=== PATIENT | female | born 1995 | race Caucasian/White ===

== ENCOUNTER 2017-01-05 05:39 | Inpatient (IN) | payer OTHER ==
[2017-01-05] VITALS (18 sets, daily range): BP systolic 129–158; BP diastolic 86–94; PULSE 86–126; RESP 1–20; TEMP 98–99
[~2017-01-05] VITALS: Ht 165.1 cm; Wt 113.4 kg
--- NOTE | 2017-01-05 07:33 | PD ---
HPI Chief Complaint Contractions Date Seen: Jan 05, 2017 Time Seen: 07:29 Travel History International Travel<30 Days: No Contact w/Intl Traveler<30Days: No Known Affected Area: No History of Present Illness HPI This is a 21-year-old patient who is at 40 weeks today complains of contractions since about 1:00 in the morning. Show is noted and when she got here at 6:30 that morning she was 2-3/90 and -1. Patient is GBS neg Para: 0 : 1 History Past Medical History Medical History: Denies Significant Hx Past Surgical History Surgical History: No Previous Surgery Family History Family History: Negative Social History Alcohol Use: No Tobacco Use: No Substance Abuse: No Review of Systems Except as stated in HPI: all other systems reviewed are Neg Physical Exam Narrative GENERAL: Well-nourished, well-developed patient. SKIN: Warm and dry. HEAD: Normocephalic and atraumatic. EYES: No scleral icterus. No injection or drainage. ENT: No nasal drainage noted. Mucous membranes pink. Airway patent. NECK: Supple, trachea midline. No JVD. CARDIOVASCULAR: Regular rate and rhythm without murmurs, gallops, or rubs. RESPIRATORY: Breath sounds equal bilaterally. No accessory muscle use. BREASTS: Bilateral exam showed no masses , no retractions, no nipple discharge. ABDOMEN/GI: Abdomen soft, non-tender, bowel sounds present, no rebound, no guarding Gravid to [-] weeks size Fundal Height: [38-] GENITOURINARY: External Genitalia: intact and normal in appearance BUS glands: [-Normal] Cervix: [Posterior-] Dilatation: [Four-] Effacement: [100%-] Station: [-2-] Presentation: [Vertex-] Membranes: Intact Uterine Contractions: [-Every 5-10 minutes] FHT's: Category: [-1] Baseline: 140 Reactive: Reactive Variability: Moderate Decels: Absent EXTREMITIES: No cyanosis or edema. BACK: Nontender without obvious deformity. No CVA tenderness. NEUROLOGICAL: Awake and alert. Motor and sensory grossly within normal limits. Five out of 5 muscle strength in all muscle groups. Normal speech. Data Data Vital Signs Reviewed: Yes MDM Plan Patient in early active labor Dr. Campbell called who is covering for this patient's physician Admission Diagnosis Diagnosis: Primary Impression: Irregular uterine contractions Additional Impression: 40 weeks gestation of Margo Carlton MD Jan 05, 2017 07:33
[2017-01-05] MEDS ORDERED: LACTATED RINGER'S 1000 ML INJ 1,000 ML IV PRN (07:34)
[2017-01-05] MEDS ORDERED: LACTATED RINGER'S 1000 ML INJ 1,000 ML IV SCH (07:34)
[2017-01-05] MEDS ORDERED: ONDANSETRON HCL 4 MG/2 ML VIAL IV PRN (07:45)
[2017-01-05] MEDS ORDERED: SODIUM CHLORID 0.9% 500 ML INJ 500 ML IV PRN (07:45)
[2017-01-05] MEDS ORDERED: CITRIC ACID-SODIUM CITRATE LIQ 30 ML UDC PO SCH (07:45)
[2017-01-05] MEDS ORDERED: MINERAL OIL 10 ML VIAL TOPICAL PRN (07:45)
[2017-01-05] MEDS ORDERED: OXYTOCIN 30 UNITS-500ML PREMIX 500 ML IV ONE (07:45)
[2017-01-05] MEDS ORDERED: LIDOCAINE HCL 1% 50 ML VIAL I-DERMAL PRN (07:45)
[2017-01-05] MEDS ORDERED: LIDOCAINE HCL 1% 50 ML VIAL INFIL PRN (07:45)
[2017-01-05] MEDS ORDERED: SODIUM CHLOR 0.9% 1000 ML INJ 1,000 ML IV PRN (07:54)
[2017-01-05] MEDS ORDERED: OXYTOCIN 30 UNITS-500ML PREMIX 500 ML ONE (08:22)
[2017-01-05 09:07] LABS: AUTOMATED NEUTROPHIL # 14.6 TH/MM3 (1.8-7.7); BASOPHIL % 0.2 % (0.0-2.0); EOSINOPHIL # 0.1 TH/MM3 (0-0.4); EOSINOPHIL % 0.7 % (0.0-4.0); HEMATOCRIT 35.9 % (35.0-46.0); HEMO FLAGS DIFF FINAL; LYMPH % 8.8 % (9.0-44.0); LYMPHOCYTE # 1.5 TH/MM3 (1.0-4.8); MEAN CELL VOLUME 89.2 FL (80.0-100.0); MEAN CORPUSCULAR HEMOGLOBIN 30.5 PG (27.0-34.0); MEAN CORPUSCULAR HGB CONC 34.2 % (32.0-36.0); MONO % 3.6 % (0.0-8.0); NEUT % 86.7 % (16.0-70.0); PLATELET COUNT 274 TH/MM3 (150-450); RED BLOOD COUNT 4.03 MIL/MM3 (4.00-5.30); RED CELL DISTRIBUTION WIDTH 13.8 % (11.6-17.2); WHITE BLOOD COUNT 16.9 TH/MM3 (4.0-11.0)
[2017-01-05 09:10] LABS: BACTERIA, URINE RARE /hpf; BLOOD, URINE SMALL (NEG); COMMENT (UR) CULT NOT INDICATED; CULTURE IF INDICATED CULT NOT INDICATED; GLUCOSE,URINE NEG (NEG); KETONE, URINE NEG (NEG); MUCUS URINE FEW /lpf (OCC); NITRITE,URINE NEG (NEG); PH, URINE 6.5 (5.0-8.5); SQUAMOUS EPITHELIAL CELL URINE 3 /hpf (0-5); URINE COLOR YELLOW (YELLW/STRAW)
[2017-01-05] MEDS ORDERED: CALNTAB (10:06)
--- NOTE | 2017-01-05 17:53 | HHI.HP ---
History & Physical H&P Patient Name: Steff Beltre Unit Number: [id number] Date of : 1995 Patient Status: Admitted Inpatient Attending Doctor: Jc Campbell MD [facility] HPI Chief Complaint Contractions Date Seen: Jan 05, 2017 Time Seen: 07:29 Travel History International Travel<30 Days: No Contact w/Intl Traveler<30Days: No Known Affected Area: No History of Present Illness HPI This is a 21-year-old patient who is at 40 weeks today complains of contractions since about 1:00 in the morning. Show is noted and when she got here at 6:30 that morning she was 2-3/90 and -1. Patient is GBS neg Para: 0 : 1 History (Limited) History Past Medical History Medical History: Denies Significant Hx Past Surgical History Surgical History: No Previous Surgery Family History Family History: Negative Social History Alcohol Use: No Tobacco Use: No Substance Abuse: No Allergies-Medications Allergies-Medications ROS Review of Systems Except as stated in HPI: all other systems reviewed are Neg Physical Exam Physical Exam Narrative GENERAL: Well-nourished, well-developed patient. SKIN: Warm and dry. HEAD: Normocephalic and atraumatic. EYES: No scleral icterus. No injection or drainage. ENT: No nasal drainage noted. Mucous membranes pink. Airway patent. NECK: Supple, trachea midline. No JVD. CARDIOVASCULAR: Regular rate and rhythm without murmurs, gallops, or rubs. RESPIRATORY: Breath sounds equal bilaterally. No accessory muscle use. BREASTS: Bilateral exam showed no masses , no retractions, no nipple discharge. ABDOMEN/GI: Abdomen soft, non-tender, bowel sounds present, no rebound, no guarding Gravid to [-] weeks size Fundal Height: [38-] GENITOURINARY: External Genitalia: intact and normal in appearance BUS glands: [-Normal] Cervix: [Posterior-] Dilatation: [Four-] Effacement: [100%-] Station: [-2-] Presentation: [Vertex-] Membranes: Intact Uterine Contractions: [-Every 5-10 minutes] FHT's: Category: [-1] Baseline: 140 Reactive: Reactive Variability: Moderate Decels: Absent EXTREMITIES: No cyanosis or edema. BACK: Nontender without obvious deformity. No CVA tenderness. NEUROLOGICAL: Awake and alert. Motor and sensory grossly within normal limits. Five out of 5 muscle strength in all muscle groups. Normal speech. Data Data Data Vital Signs Reviewed: Yes MDM MDM Plan Patient in early active labor Dr. Campbell called who is covering for this patient's physician Admission Diagnosis Diagnosis: Primary Impression: Irregular uterine contractions Additional Impression: 40 weeks gestation of Hamlet Cortes MD Jan 05, 2017 17:53
--- NOTE | 2017-01-05 17:57 | PD.LABORPN ---
Subjective Subjective Patient denies rupture membranes. Contractions are consistent and she is tolerating them well. Objective Vital Signs Vital Signs Date Time Temp Pulse Resp B/P Pulse Ox O2 Delivery O2 Flow Rate FiO2 01/05/17 17:32 109 18 129/94 01/05/17 16:41 98.0 01/05/17 15:06 1 01/05/17 15:05 100 158/93 01/05/17 11:33 86 18 140/94 Objective Pelvic Exam: Cervix: [-] Dilatation: [7-8-] Effacement: [100-] Station: [-] Presentation: [-v] Membranes: [intact] Uterine Contractions: [q3-] FHT's: Category: [-1] Baseline: [-] Reactive: [-] Variability: [-] Decels: [-] Assessment/Plan Assessment and Plan Assessment: Progressing in active labor, category 1 heart rate Plan: The patient had requested a change of medical provider and I have accepted care of this patient. Expect vaginal delivery. Continue expectant management. Hamlet Cortes MD Jan 05, 2017 17:57
--- NOTE | 2017-01-05 21:16 | PD.LABORPN ---
Subjective Subjective Patient notes continued contractions Objective Vital Signs Vital Signs Date Time Temp Pulse Resp B/P Pulse Ox O2 Delivery O2 Flow Rate FiO2 01/05/17 20:54 99.0 18 01/05/17 17:32 109 18 129/94 01/05/17 16:41 98.0 01/05/17 15:06 1 01/05/17 15:05 100 158/93 Objective Pelvic Exam: Cervix: [-] Dilatation: [-7-8] Effacement: [100-] Station: [0-] Presentation: [-vtx] Membranes: [ruptured] Uterine Contractions: [q2-3-] FHT's: Category: [-1] Baseline: [-] Reactive: [-] Variability: [-] Decels: [-] Assessment/Plan Assessment and Plan Assessment: Protracted active phase Plan: Patient agrees to amniotomy but is not in favor Pitocin or intrauterine pressure catheter at this time. Hamlet Cortes MD Jan 05, 2017 21:16
[2017-01-06] VITALS (10 sets, daily range): BP systolic 114–142; BP diastolic 69–98; PULSE 42–126; RESP 18–20; TEMP 98.1–98.9
--- NOTE | 2017-01-06 00:25 | PD.OB.DELI ---
Delivery Date: Jan 06, 2017 Anesthesia: None Episiotomy: None Vaginal Delivery: Normal (the vertex was expelled by maternal effort. There was no delay 4 the shoulders which were also delivered by maternal effort. The was passed to the maternal abdomen. Delayed cord clamping was accomplished. Cord blood sample was obtained. Hemostasis was excellent following spontaneous expulsion of the placenta with the addition of IV Pitocin and massage. Estimated blood loss 200 cc) Presentation: Occiput anterior Nuchal Cord: None Delayed cord clamping (45 sec): Yes : Male One Minute : 9 Five Minute : 9 Weight: 3260 Infant Care: Spontaneous crying Placenta: Spontaneous delivery, Intact, 3 vessel cord Laceration: Vaginal laceration, 2 deg Repair: Vicryl Hamlet Bueno MD Jan 06, 2017 00:24
[2017-01-06] MEDS ORDERED: SODIUM CHLORIDE 0.9% FLUSH 5 ML FLUSH IV PRN (01:15)
[2017-01-06] MEDS ORDERED: WITCH HAZEL 50%/GLYCERIN 12.5% 40 PAD JAR TOPICAL PRN (01:15)
[2017-01-06] MEDS ORDERED: ONDANSETRON ODT 4 MG TAB PO PRN (01:15)
[2017-01-06] MEDS ORDERED: oxyCODONE/ACETAMINOPHEN 5 MG/325 MG TAB PO PRN ×2 (01:15)
[2017-01-06] MEDS ORDERED: BENZOCAINE 20% TOPICAL SPRAY 60 ML CAN TOPICAL PRN (01:15)
[2017-01-06] MEDS ORDERED: DOCUSATE SODIUM 50 MG/SENNA 8.6 MG TAB PO PRN (01:15)
[2017-01-06] MEDS ORDERED: ALUMINUM/MAGNESIUM/SIMETH 30 ML CUP PO PRN (01:15)
[2017-01-06] MEDS ORDERED: ACETAMINOPHEN 325 MG TAB PO PRN (01:15)
[2017-01-06] MEDS ORDERED: ZOLPIDEM TARTRATE 5 MG TAB PO PRN (01:15)
[2017-01-06] MEDS: IBUPROFEN 600 MG TAB PO PRN ×3 (01:31→19:55)
[2017-01-06] MEDS ORDERED: SODIUM CHLORIDE 0.9% FLUSH 5 ML FLUSH IV SCH (09:00)
--- NOTE | 2017-01-06 10:28 | HHI.OB ---
Subjective Post Day: 1 Remarks Ms. Beltre is a 21 yo who is PPD 1 from vaginal delivery. Patient reports controlled abdominal pain at this time with Motrin; patient reports her pain as 2/10. Patient reports minimal vaginal bleeding. Patient is ambulating well. No dysuria. Patient states she has not yet passed gas or bowel movement. Patient reports some shortness of breath when walking. No calf tenderness. Patient breast-feeding well. (Stef Deshpande MD R2) Remarks Patient seen and evaluated with resident under direct supervision, agree with assessment and plan. (Hamlet Cortes MD) Objective Vitals/I&O Vital Signs Date Time Temp Pulse Resp B/P Pulse Ox O2 Delivery O2 Flow Rate FiO2 01/06/17 08:15 98.1 78 20 01/06/17 08:14 120/89 01/06/17 02:00 98.9 112 18 131/69 01/06/17 01:45 18 01/06/17 01:33 131/75 01/06/17 01:33 114 01/06/17 01:01 114 114/98 01/06/17 00:56 121 01/06/17 00:56 131/77 01/06/17 00:35 42 126/86 01/06/17 00:17 126 130/81 01/06/17 00:01 142/82 01/06/17 00:01 113 01/05/17 23:52 20 01/05/17 23:51 126 151/88 01/05/17 22:36 98.9 107 01/05/17 22:35 157/88 01/05/17 22:25 20 01/05/17 21:56 20 01/05/17 21:30 20 01/05/17 21:00 120 151/86 01/05/17 20:54 99.0 18 01/05/17 17:32 109 18 129/94 01/05/17 16:41 98.0 01/05/17 15:06 1 01/05/17 15:05 100 158/93 01/05/17 11:33 86 18 140/94 Objective Remarks GENERAL: Well-nourished, well-developed patient. CARDIOVASCULAR: Tachycardic (~110 bpm), regular rhythm without murmurs RESPIRATORY: Breath sounds equal bilaterally. No accessory muscle use. ABDOMEN/GI: Abdomen soft, non-tender. Fundus: Firm, non-tender at umbilicus. GENITOURINARY: Light to moderate bleeding. EXTREMITIES: No cyanosis or edema, non-tender, without signs of DVT. Medications and IVs Current Medications Medications (Trade) Dose Ordered Sig/Dayday Route Start Time Stop Time Status Last Admin (NS Flush) 2 ml BID IV 01/06/17 09:00 (NS Flush) 2 ml UNSCH PRN IV 01/06/17 01:15 (Tylenol) 650 mg Q4H PRN PO 01/06/17 01:15 (Motrin) 600 mg Q6H PRN PO 01/06/17 01:15 01/06/17 01:31 (Percocet 5-325 Mg) 1 tab Q4H PRN PO 01/06/17 01:15 01/06/17 06:45 (Percocet 5-325 Mg) 2 tab Q4H PRN PO 01/06/17 01:15 (Americaine 20% Top Spr) 1 spray Q4H PRN TOPICAL 01/06/17 01:15 01/06/17 02:28 (Tucks Pads) 1 applic QID PRN TOPICAL 01/06/17 01:15 01/06/17 02:28 (Merle-Colace) 2 tab Q12H PRN PO 01/06/17 01:15 (Ambien) 5 mg HS PRN PO 01/06/17 01:15 (M-M-R Ii Inj) 0.5 ml ONCE ONCE SQ 01/06/17 16:00 01/06/17 16:01 (Boostrix Inj) 0.5 ml ONCE ONCE IM 01/06/17 16:00 01/06/17 16:01 (Mag-Al Plus Susp Liq) 15 ml Q8H PRN PO 01/06/17 01:15 (Zofran Odt) 4 mg Q6H PRN PO 01/06/17 01:15 (Stef Deshpande MD R2) Assessment/Plan Problem List: (1) care and examination Assessment and Plan 21 yo female s/p vaginal delivery PPD1. - AF, mild tachycardia (~110bpm) but otherwise reassuring exam, will monitor - Continue routine care - Motrin and Percocet PRN pain - Encourage OOB - Pelvic rest x 6 wks - Contraception - Anticipate D/C tomorrow (Stef Deshpande MD R2) Stef Deshpande MD R2 Jan 06, 2017 10:28 Hamlet Cortes MD Jan 12, 2017 12:00
[2017-01-06] MEDS ORDERED: MEASLES, MUMPS, RUBELLA VACCINE 0.5 ML VIAL SQ ONE (16:00)
[2017-01-06] MEDS ORDERED: DIPHTH/TETANUS/ACEL PERTUSSIS (BOOSTER) 0.5 ML VIAL/PFS IM ONE (16:00)
[2017-01-07] MEDS: IBUPROFEN 600 MG TAB PO PRN (05:34)
[2017-01-07] MEDS ORDERED: PERI8.6T PO (07:54)
[2017-01-07] MEDS ORDERED: IBUP-232 PO (07:54)
--- NOTE | 2017-01-07 07:57 | HHI.DCPOC ---
Discharge Care Plan Diagnosis: (1) (spontaneous vaginal delivery) Your Health Problems Are: Vaginal delivery Report Symptoms to Your Doctor -Temperate above 100.5 degrees -Redness, of incision or excessive or foul smelling drainage -Unusual pain or calf pain -Increased vaginal bleeding -Painful or difficulty urinating -Feelings of extreme sadness or anxiety after 2 weeks Goals to Promote Your Health * To prevent worsening of your condition and complications * To maintain your health at the optimal level Directions to Meet Your Goals Take your medications as prescribed Follow your dietary instruction Follow activity as directed Ensure plenty of rest for recovery Drink fluids for hydration Keep your appointments as scheduled Take your immunizations and boosters as scheduled If your symptoms worsen call your PCP, if no PCP go to Urgent Care Center or Emergency Room Smoking is Dangerous to Your Health. Avoid second hand smoke Call the 24-hour crisis hotline for domestic abuse at Mariela Schaffer MD Jan 07, 2017 07:56
--- NOTE | 2017-01-07 07:58 | HHI.OB ---
Subjective Post Day: 2 Remarks s/p Objective Vitals/I&O Vital Signs Date Time Temp Pulse Resp B/P Pulse Ox O2 Delivery O2 Flow Rate FiO2 01/06/17 08:15 98.1 78 20 01/06/17 08:14 120/89 Objective Remarks GENERAL: Well-nourished, well-developed patient. CARDIOVASCULAR: Tachycardic (~110 bpm), regular rhythm without murmurs RESPIRATORY: Breath sounds equal bilaterally. No accessory muscle use. ABDOMEN/GI: Abdomen soft, non-tender. Fundus: Firm, non-tender at umbilicus. GENITOURINARY: Light to moderate bleeding. EXTREMITIES: No cyanosis or edema, non-tender, without signs of DVT. Medications and IVs Current Medications Medications (Trade) Dose Ordered Sig/Dayday Route Start Time Stop Time Status Last Admin (NS Flush) 2 ml BID IV 01/06/17 09:00 (NS Flush) 2 ml UNSCH PRN IV 01/06/17 01:15 (Tylenol) 650 mg Q4H PRN PO 01/06/17 01:15 (Motrin) 600 mg Q6H PRN PO 01/06/17 01:15 01/07/17 05:34 (Percocet 5-325 Mg) 1 tab Q4H PRN PO 01/06/17 01:15 01/06/17 06:45 (Percocet 5-325 Mg) 2 tab Q4H PRN PO 01/06/17 01:15 (Americaine 20% Top Spr) 1 spray Q4H PRN TOPICAL 01/06/17 01:15 01/06/17 02:28 (Tucks Pads) 1 applic QID PRN TOPICAL 01/06/17 01:15 01/06/17 02:28 (Merle-Colace) 2 tab Q12H PRN PO 01/06/17 01:15 (Ambien) 5 mg HS PRN PO 01/06/17 01:15 (Mag-Al Plus Susp Liq) 15 ml Q8H PRN PO 01/06/17 01:15 (Zofran Odt) 4 mg Q6H PRN PO 01/06/17 01:15 Assessment/Plan Problem List: (1) care and examination Assessment and Plan 21 yo female s/p vaginal delivery PPD2. routine PP care meeting all criteria d/c to home today pt to have infant circ'd in office later this week Discharge Planning routine, today Mariela Schaffer MD Jan 07, 2017 07:58
== END 2017-01-07 11:44 | disposition home or self-care (01) | DRG 774 ==
LOC: HOBED 05:39 → H2EA 07:53 → H1EA 01-06 01:44
PROVIDERS: ADMIT Obstetrics & Gynecology; ATTEND Obstetrics & Gynecology
PROC: 10907ZC Drainage of Amniotic Fluid, Therapeutic from Products of Conception, Via Natural or Artificial Opening (ICD-10-PCS; 2017-01-05)
PROC: 10E0XZZ Delivery of Products of Conception, External Approach (ICD-10-PCS; principal; 2017-01-06)
PROC: 0KQM0ZZ Repair Perineum Muscle, Open Approach (ICD-10-PCS; 2017-01-06)
DX: O63.0 Prolonged first stage (of labor) (principal); O90.89 Other complications of the puerperium, not elsewhere classified; R00.0 Tachycardia, unspecified; O70.1 Second degree perineal laceration during delivery; Z37.0 Single live birth; Z3A.40 40 weeks gestation of pregnancy
CPT/HCPCS: 81001; 85025; 86900; 86901; 99285; J2590; J3010; J7120